=== PATIENT | female | born 1960 | race Caucasian/White ===

== ENCOUNTER 2016-02-24 20:06 | Emergency (ER) | payer BC ==
[2016-02-24 20:20] VITALS: BP 93/71
--- NOTE | 2016-02-24 21:17 | ED ---
Throat Pain/Nasal Congestion - HPI Summary HPI Summary: 56 F w/ no PMH presents with trauma to mandible. she was lifting a dumbbells when it hit her in the jaw and she bit her lip. She denies any loose teeth. She has a history of tmj. She states that when the dumbbell struck her chin she bite her lip. She denies any headache, LOC, or vomiting. She is not on any blood thinners. Area of lip still bleeding a little. - History of Current Complaint Chief Complaint: EDFacialInjury Time Seen by Provider: 02/24/16 20:43 - Allergies/Home Medications Allergies/Adverse Reactions: Allergies Allergy/AdvReac Type Severity Reaction Status Date / Time No Known Allergies Allergy Verified 05/18/14 08:59 PMH/Surg Hx/FS Hx/Imm Hx Endocrine/Hematology History: Denies: Hx Anticoagulant Therapy Respiratory History: Denies: Hx Asthma - Cancer History Hx Chemotherapy: No Hx Radiation Therapy: No - Surgical History Surgery Procedure, Year, and Place: Infectious Disease History: No Infectious Disease History: Denies: Hx Clostridium Difficile, Hx Hepatitis, Hx Human Immunodeficiency Virus (HIV), Hx of Known/Suspected MRSA, Hx Shingles, Hx Tuberculosis, Hx Known/ Suspected VRE, Hx Known/Suspected VRSA, History Other Infectious Disease, Traveled Outside the [place] in Last 30 Days - Family History Known Family History: Negative: Cardiac Disease - Social History Alcohol Use: None Substance Use Type: Reports: None Smoking Status (MU): Never Smoked Tobacco Have You Smoked in the Last Year: No Review of Systems Negative: Fever Positive: Other - abrasion to lower lip, chin pain. Negative: Dental Pain Negative: Chest Pain Negative: Shortness Of Breath All Other Systems Reviewed And Are Negative: Yes Physical Exam Triage Information Reviewed: Yes Vital Signs On Initial Exam: Initial Vitals Temp Pulse Resp BP Pulse Ox 98 F 73 16 93/71 100 02/24/16 20:16 02/24/16 20:16 02/24/16 20:16 02/24/16 20:16 02/24/16 20:16 Vital Signs Reviewed: Yes Appearance: Positive: Well-Appearing Skin: Positive: Warm, Dry Head/Face: Positive: Normal Head/Face Inspection, Other - tenderness to mandible Eyes: Positive: Normal, EOMI, COMPA, Conjunctiva Clear ENT: Positive: Normal ENT inspection, Pharynx normal, TMs normal, Other - avulsion of lower lip with no suturable laceration present Dental: Positive: Other - no loose teeth present Neck: Positive: Supple, Nontender Respiratory/Lung Sounds: Positive: Clear to Auscultation, Breath Sounds Present Cardiovascular: Positive: Normal, RRR Neurological: Positive: Sensory/Motor Intact, Alert, Oriented to Person Place, Time, CN Intact II-III Diagnostics - Vital Signs Vital Signs Temp Pulse Resp BP Pulse Ox 02/24/16 20:16 98 F 73 16 93/71 100 - Laboratory Lab Statement: Any lab studies that have been ordered have been reviewed, and results considered in the medical decision making process. - CT maxillofacial CT Interpretation: No Acute Changes - IMPRESSION: Negative for mandibular fracture or temporomandibular joint malalignment. Mild soft tissue edema superficial to the anterior midline mandible without evidence for loculated hematoma. CT Interpretation Completed By: Radiologist EENT Course/Dx - Course Course Of Treatment: 56 F presents with trauma to chin and biting her lower lip s/p hitting a dumbbell into her face. She states she has a history of TMJ and wants to make sure jaw is dyllan, no step off noted on exam, no head trauma occurred and is not on any blood thinners, abrasion was cleaned and no sutureable area was found, CT face and no evidence of fracture, explained results to patient, told to keep lip moist and will start heal in 3-5 days, patient agrees with plan - Differential Diagnoses Differential Diagnoses: Abrasion, Contusion, Fracture, Laceration, Mandibular/ Maxillary Trauma - Diagnoses Provider Diagnoses: Contusion of mandibular joint area, abrasion of lower lip Discharge - Discharge Plan Condition: Good Disposition: HOME Referrals: Alysia Johnson MD [Primary Care Provider] - Additional Instructions: Place ice on area Keep lip moist Use Tylenol or ibuprofen for pain every 6 hours Return to ED for any new or worsening symptoms
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
== END 2016-02-24 22:08 | disposition home or self-care (01) ==
LOC: ED 20:06
DX: S00.511A Abrasion of lip, initial encounter (principal); W22.8XXA Striking against or struck by other objects, initial encounter; Y93.9 Activity, unspecified; Y92.9 Unspecified place or not applicable; Y99.9 Unspecified external cause status
CPT/HCPCS: 70486; 99281